=== PATIENT | male | born 1970 | race Caucasian/White ===

== ENCOUNTER 2016-12-09 17:16 | Emergency (ER) | payer OTHER ==
[~2016-12-09] VITALS: Ht 175.3 cm; Wt 187.3 kg
[~2016-12-09 17:16] MED LIST: ASPI325T PO; ATEN50TA2 PO; COZA25TA8 PO; NITR0.4S SL; PLAV75TA2 PO; PREV15CA PO; VYTO10TA5 PO
[2016-12-09] MEDS ORDERED: ATOR1TAB21 PO (17:29)
[2016-12-09] MEDS ORDERED: PANT40TA2 PO (17:29)
[2016-12-09] MEDS ORDERED: ASPI81CH PO (17:29)
[2016-12-09] MEDS ORDERED: ROBA500T PO (17:29)
[2016-12-09 18:29] LABS: BASO # 0.1 K/mm3 (0.0-0.2); BASO % 0.3 % (0.0-1.0); EOS # 0.1 K/mm3 (0.0-0.50); EOS % 0.6 % (0.0-3.0); LARGE UNSTAINED CELL # 0.2 K/mm3 (0.0-0.4); LARGE UNSTAINED CELL % 0.8 % (0.0-4.0); LYMPH # 1.9 K/mm3 (1.5-4.5); LYMPH % 9.6 % (24.0-44.0); MEAN CORPUSCULAR HGB CONC 34.1 g/dl (32.0-36.5); MEAN CORPUSCULAR VOLUME 90.9 fl (80.0-96.0); MONO # 0.5 K/mm3 (0.0-0.8); MONO % 2.8 % (0.0-5.0); NEUTROPHILS # 16.6 K/mm3 (1.8-7.7); NEUTROPHILS % 85.9 % (36.0-66.0); PLATELET COUNT, AUTOMATED 261 k/mm3 (150-450); RED CELL DISTRIBUTION WIDTH 13.2 % (11.5-14.5); WHITE BLOOD COUNT 19.3 K/mm3 (4.0-10.0)
[2016-12-09 19:03] LABS: ANION GAP 8 MEQ/L (8-16); BLOOD UREA NITROGEN 17 MG/DL (7-18); CALCIUM LEVEL 8.9 MG/DL (8.5-10.1); CARBON DIOXIDE LEVEL 28 MEQ/L (21-32); CHLORIDE LEVEL 101 MEQ/L (98-107); CREATININE FOR GFR 1.02 MG/DL (0.70-1.30); GLOMERULAR FILTRATION RATE > 60.0 (>60); GLUCOSE, FASTING 145 MG/DL (70-105); SODIUM LEVEL 137 MEQ/L (136-145)
[2016-12-09 19:04] LABS: POTASSIUM SERUM 4.8 MEQ/L (3.5-5.1)
[2016-12-09] MEDS ORDERED: ISOVUE-370 76% 100ML VIAL (Q9967) As Ordered ONE (19:07)
[2016-12-09] MEDS ORDERED: LR 1,000 ML IV ONE (19:15)
--- NOTE | 2016-12-09 19:23 | REP ---
CHEST X-RAY PA AND LATERAL: 12/09/2016: Comparison: 10/05/2015, 04/25/2014. Clinical history: Cough and dyspnea. Two-views show the lung bravo well inflated. The CP angles are sharply defined. There is no effusion, lateral pleural thickening, apical scarring or pneumothorax. No nodule or mass within the parenchyma. Heart size not enlarged. The aorta is mildly tortuous but normal for age. Airway intact. There is some mild prominence of central pulmonary arteries but unchanged. No vascular redistribution or edema. Bony thorax shows marginal osteophytes without acute compression deformity. Appearance unchanged. No free air. Impression: 1. No acute cardiopulmonary disease, stable chest. Signed by Marcos Angulo MD 12/09/2016 08:19 P
[2016-12-09] MEDS ORDERED: AZITHROMYCIN 250 MG TAB PO ONE (19:30)
--- NOTE | 2016-12-09 19:30 | REPUSA ---
CT angiogram of the chest Clinical statement: positive D-dimer. Technique: Multiple axial CT images were obtained from the thoracic inlet through the upper abdomen a fter a bolus administration of nonionic intravenous contrast. Coronal and sagittal reconstructions we re also obtained. Comparison: 04/25/2014. Findings: The pulmonary arteries are suboptimally opacified with contrast, without any discrete intra luminal filling defects to suggest embolism. The thoracic aorta is unremarkable. Thyroid gland is wit hin normal limits. There is no thoracic lymphadenopathy. There are no pericardial or pleural effusion s. The lungs are clear. Limited imaging of the upper abdomen is unremarkable. There are no suspicious osseous lesions. Impression: 1. No evidence of pulmonary embolism. 2. No acute intrapulmonary disease.
--- NOTE | 2016-12-09 20:00 | REPUSA ---
Clinical history: Pain, swelling. Findings: The right common femoral, superficial femoral, popliteal, and other deep venous structures compress normally and demonstrate normal color Doppler flow. Normal venous waveforms with augmentatio n are seen. Impression: No evidence of deep vein thrombosis in the right femoral popliteal venous system.
[2016-12-09] MEDS ORDERED: ZITHTAB PO (21:39)
[2016-12-09] MEDS ORDERED: IPRATROPIUM 0.5MG/ALBUTEROL 2.5MG INH SOL UD 3ML (DUONEB)(J7620) NEB ONE (21:45)
[2016-12-09] MEDS ORDERED: ALBU17IN INH (21:45)
[2016-12-09 22:22] VITALS: BP 167/90
--- NOTE | 2016-12-10 08:30 | ECGEPIP ---
Stationary ECG Study [facility] - ED Test Date: 2016-12-09 Pat Name: ABDELRAHMAN JACKSON Department: Room: - Gender: M [employer] Power: : [id number] Requested By: MARIAM GRIFFIN PA-C. Order Number: [id number] Reading MD: Kapil Mckeon Measurements Intervals [place] Rate: 107 P: 40 CT: 189 QRS: 167 QRSD: 146 T: 8 QT: 362 QTc: 485 Interpretive Statements SINUS TACHYCARDIA RAD RIGHT BUNDLE BRANCH BLOCK LEFT POSTERIOR FASCICULAR BLOCK Electronically Signed On 12-10-2016 8:30:23 EDT by Kapil Mckeon
== END 2016-12-09 22:27 | disposition home or self-care (01) ==
LOC: M ED 18:58
DX: J98.8 Other specified respiratory disorders (principal); I10 Essential (primary) hypertension; M51.9 Unspecified thoracic, thoracolumbar and lumbosacral intervertebral disc disorder; Z95.5 Presence of coronary angioplasty implant and graft; Z87.442 Personal history of urinary calculi; Z79.899 Other long term (current) drug therapy; Z79.82 Long term (current) use of aspirin; Z88.0 Allergy status to penicillin; Z88.2 Allergy status to sulfonamides
CPT/HCPCS: 36415; 71020; 71275; 80048; 81001; 82550; 82553; 83605; 83880; 85025; 85379; 87040; 93005; 93970; 94640; 96360; 96361; 99284; Q9967

== ENCOUNTER → 2023-05-18 | Outpatient (CLI) | payer OTHER ==
[~2023-05-18] MED LIST changes: +ALBU17IN INH; +ASPI81CH49 PO; +ATOR1TAB21 PO; +FURO20TA2; +LABE100T6; +LOSA100T46; +PANT40TA29 PO; +ROBA500T PO; +ZITHTAB PO
== END ==
LOC: M PLAIMG 10:01
PROVIDERS: ATTEND Specialist
DX: C34.90 Malignant neoplasm of unspecified part of unspecified bronchus or lung (principal)